=== PATIENT | male | born 1930 | race Caucasian/White ===

== ENCOUNTER 2019-04-18 13:56 | Emergency (ER) | payer MEDICARE, BC ==
[~2019-04-18] VITALS: Ht 172.7 cm; Wt 81.6 kg
--- NOTE | 2019-04-18 14:26 | ED Abdominal Pain ---
General Chief Complaint: Abdominal/GI Problems Stated Complaint: NAUSEA; DIARRHEA Source of Information: Patient, Spouse Exam Limitations: No Limitations History of Present Illness Date Seen by Provider: Apr 18, 2019 Time Seen by Provider: 14:20 Initial Comments The patient is a very pleasant 88-year-old male who presents for evaluation of nausea, diarrhea, and lower right-sided abdominal discomfort which started last night. The patient's is present as well and is providing some of the history. The patient has not vomited. He has had his appendix and gallbladder removed in the past. He denies fevers or chills, rectal bleeding, recent antibiotics, recent hospitalization, increasing over baseline chronic back pain, chest pain or shortness of breath, diaphoresis, dizziness, syncope, or urinary symptoms. He is alert and oriented 4, calm, and appears to be in no distress at this time. He is concerned about dehydration as his appetite has been poor and would like some IV hydration. Timing/Duration: 1 Day Severity/Quality: Moderate Location: RLQ Radiation: No Radiation Activities at Onset: None Modifying Factors: Improves With Eating (makes it worse), Improves With Lying down (makes it better) Associated Symptoms: Nausea/Vomiting (nausea only, no vomiting, +diarrhea) Allergies and Home Medications Allergies Coded Allergies: bacitracin (Verified Allergy, Unknown, 04/18/19) cinnamon (Verified Allergy, Unknown, 04/18/19) gold sodium thiomalate (Verified Allergy, Unknown, 04/18/19) hyaluronate sodium, cross-linked (Verified Allergy, Unknown, 04/18/19) latex (Verified Allergy, Unknown, 04/18/19) propylene glycol (Verified Allergy, Unknown, 04/18/19) rotigotine (Verified Allergy, Unknown, 04/18/19) Uncoded Allergies: GLUTARALDEHYDE (Allergy, Unknown, 04/18/19) IODOPROPNYL BUTYLCARBAMATE (Allergy, Unknown, 04/18/19) CLGDIMMETN-ROKWVXKUX-LPHF PLYS (Allergy, Unknown, 04/18/19) NEOMYCIN SULFATE (Allergy, Unknown, 04/18/19) NICKEL SULFATE (Allergy, Unknown, 04/18/19) SHELLAC (Allergy, Unknown, 04/18/19) TAPE (Allergy, Unknown, 04/18/19) TIXOCORTOL PIVALATE (Allergy, Unknown, 04/18/19) Patient Home Medication List Home Medication List Reviewed: Yes Review of Systems Review of Systems Constitutional: no symptoms reported EENTM: No Symptoms Reported Respiratory: No Symptoms Reported Cardiovascular: No Symptoms Reported Gastrointestinal: Abdominal Pain, Diarrhea, Nausea Genitourinary: No Symptoms Reported Musculoskeletal: no symptoms reported Skin: no symptoms reported Psychiatric/Neurological: No Symptoms Reported Endocrine: No Symptoms Reported Hematologic/Lymphatic: No Symptoms Reported All Other Systems Reviewed Negative Unless Noted: Yes Past Zxlyapu-Ifudvy-Grhaqd Hx Past Med/Social Hx: Reviewed Nursing Past Med/Soc Hx, Reviewed and Corrections made Physical Exam Vital Signs Vital Signs - First Documented 04/18/19 14:04 Temp 97.0 Pulse 85 Resp 20 B/P (MAP) 126/84 (98) Pulse Ox 95 O2 Delivery Room Air Capillary Refill : Height/Weight/BMI Height: '" Weight: lbs. oz. kg; BMI Method: General Appearance: WD/WN, no apparent distress HEENT: PERRL/EOMI, normal ENT inspection, pharynx normal Neck: non-tender, full range of motion, normal inspection Respiratory: chest non-tender, lungs clear, normal breath sounds, no respiratory distress, no accessory muscle use Cardiovascular: regular rate, rhythm, no edema, no gallop, no JVD, no murmur Gastrointestinal: normal bowel sounds, soft, no organomegaly, no pulsatile mass, tenderness (right lower/right lateral abdomen, moderate) Extremities: normal range of motion, non-tender, normal inspection, no pedal edema, no calf tenderness Progress/Results/Core Measures Results/Orders Lab Results Laboratory Tests Test 04/18/19 14:45 04/18/19 15:24 Range/Units White Blood Count 11.2 H 4.3-11.0 10^3/uL Red Blood Count 5.07 4.35-5.85 10^6/uL Hemoglobin 15.7 13.3-17.7 G/DL Hematocrit 49 40-54 % Mean Corpuscular Volume 97 80-99 FL Mean Corpuscular Hemoglobin 31 25-34 PG Mean Corpuscular Hemoglobin Concent 32 32-36 G/DL Red Cell Distribution Width 15.3 H 10.0-14.5 % Platelet Count 369 130-400 10^3/uL Mean Platelet Volume 9.2 7.4-10.4 FL Neutrophils (%) (Auto) 80 H 42-75 % Lymphocytes (%) (Auto) 8 L 12-44 % Monocytes (%) (Auto) 11 0-12 % Eosinophils (%) (Auto) 0 0-10 % Basophils (%) (Auto) 0 0-10 % Neutrophils # (Auto) 9.1 H 1.8-7.8 X 10^3 Lymphocytes # (Auto) 0.9 L 1.0-4.0 X 10^3 Monocytes # (Auto) 1.2 H 0.0-1.0 X 10^3 Eosinophils # (Auto) 0.0 0.0-0.3 10^3/uL Basophils # (Auto) 0.0 0.0-0.1 10^3/uL Neutrophils % (Manual) 79 % Lymphocytes % (Manual) 7 % Monocytes % (Manual) 9 % Eosinophils % (Manual) 1 % Basophils % (Manual) 0 % Band Neutrophils 4 % Sodium Level 138 135-145 MMOL/L Potassium Level 4.4 3.6-5.0 MMOL/L Chloride Level 99 98-107 MMOL/L Carbon Dioxide Level 29 21-32 MMOL/L Anion Gap 10 5-14 MMOL/L Blood Urea Nitrogen 17 7-18 MG/DL Creatinine 1.21 0.60-1.30 MG/DL Estimat Glomerular Filtration Rate 57 BUN/Creatinine Ratio 14 Glucose Level 131 H 70-105 MG/DL Calcium Level 9.6 8.5-10.1 MG/DL Corrected Calcium 9.5 8.5-10.1 MG/DL Total Bilirubin 0.9 0.1-1.0 MG/DL Aspartate Amino Transf (AST/SGOT) 16 5-34 U/L Alanine Aminotransferase (ALT/SGPT) 13 0-55 U/L Alkaline Phosphatase 138 H 40-136 U/L Total Protein 7.1 6.4-8.2 GM/DL Albumin 4.1 3.2-4.5 GM/DL Amylase Level 49 25-125 U/L Lipase 24 8-78 U/L Urine Color DARK YELLOW Urine Clarity SL CLOUDY Urine pH 6.0 5-9 Urine Specific [place] 1.020 1.016-1.022 Urine Protein 2+ H NEGATIVE Urine Glucose (UA) NEGATIVE NEGATIVE Urine Ketones TRACE H NEGATIVE Urine Nitrite NEGATIVE NEGATIVE Urine Bilirubin 2+ H NEGATIVE Urine Urobilinogen 2.0 NORMAL MG/DL Urine Leukocyte Esterase 1+ H NEGATIVE Urine RBC (Auto) NEGATIVE NEGATIVE Urine RBC NONE /HPF Urine WBC 50-100 H /HPF Urine Squamous Epithelial Cells 0-2 /HPF Urine Crystals NONE /LPF Urine Bacteria TRACE /HPF Urine Casts PRESENT /LPF Urine Hyaline Casts 5-10 H /LPF Urine Mucus LARGE H /LPF Urine Culture Indicated YES My Orders Orders - ELMIRA ARGUELLO DO Comprehensive Metabolic Panel (04/18/19 14:15) Lipase (04/18/19 14:15) Amylase (04/18/19 14:15) Ua Culture If Indicated (04/18/19 14:15) Ed Iv/Invasive Line Start (04/18/19 14:15) Cbc With Automated Diff (04/18/19 14:15) Ct Abdomen/Pelvis W (04/18/19 14:15) Iohexol Injection (Omnipaque 350 Mg/Ml 1 (04/18/19 14:45) Received Contrast (Hold Metformin- Contr (04/18/19 14:45) Sodium Chloride Flush (Catheter Flush Sy (04/18/19 14:45) Ns (Ivpb) (Sodium Chloride 0.9% Ivpb Bag (04/18/19 14:45) Ondansetron Injection (Zofran Injectio (04/18/19 15:00) Ns Iv 1000 Ml (Sodium Chloride 0.9%) (04/18/19 15:00) Ketorolac Injection (Toradol Injection) (04/18/19 15:00) Manual Differential (04/18/19 14:45) Ns Iv 1000 Ml (Sodium Chloride 0.9%) (04/18/19 16:00) Urine Culture (04/18/19 15:24) Ceftriaxone For Iv Use (Rocephin For I (04/18/19 16:00) Medications Given in ED Current Medications Medications Dose Ordered Sig/Natasha Route Start Time Stop Time Status Last Admin Dose Admin Ceftriaxone Sodium 1000 mg/ Sterile Water 10 ml @ 200 mls/hr Q24H ONCE IV 04/18/19 16:00 04/18/19 16:02 DC 04/18/19 16:26 200 MLS/HR Iohexol 100 ml ONCE ONCE IV 04/18/19 14:45 04/18/19 14:47 DC 04/18/19 15:51 100 ML Ketorolac Tromethamine 15 mg ONCE ONCE IVP 04/18/19 15:00 04/18/19 15:01 DC 04/18/19 14:58 15 MG Ondansetron HCl 4 mg ONCE ONCE IVP 04/18/19 15:00 04/18/19 15:01 DC 04/18/19 14:57 4 MG Sodium Chloride 10 ml NEEDED PRN IV 04/18/19 14:45 04/18/19 15:51 10 ML Sodium Chloride 100 ml ONCE ONCE IV 04/18/19 14:45 04/18/19 14:47 DC 04/18/19 15:51 100 ML Vital Signs/I&O 04/18/19 14:04 Temp 97.0 Pulse 85 Resp 20 B/P (MAP) 126/84 (98) Pulse Ox 95 O2 Delivery Room Air Progress Progress Note : Progress Note @1655 - Patient was updated on lab and imaging results which suggest enteritis as well as UTI. The patient will go home with antibiotics and nausea medications. He states that he feels much better and has no complaints. He is asking to be discharged at this time. Workup today fails to reveal any emergent pathology. The patient stable for discharge. I did advise close follow-up with the patient's PCP in 2-3 days and return to the emergency Department immediately for new or worsening symptoms. The patient expresses verbal understanding. Diagnostic Imaging Comments [facility] [place], [place] NAME: YASMINE LIU [facility] REC#: [id number] PT STATUS: REG ER : 1930 PHYSICIAN: ELMIRA ARGUELLO DO ADMIT DATE: 04/18/19/ER FS Draft Date of Exam:04/18/19 CT ABDOMEN/PELVIS W PROCEDURE: CT abdomen and pelvis with contrast. TECHNIQUE: Multiple contiguous axial images were obtained through the abdomen and pelvis after administration of intravenous contrast. Auto Exposure Controls were utilized during the CT exam to meet ALARA standards for radiation dose reduction. INDICATION: Right-sided abdominal pain. Diarrhea. COMPARISON: None. FINDINGS: Dense reticular opacities in the visualized lung bases with bronchiectasis. Cholecystectomy. Reported appendectomy. Diffuse gaseous and fluid-filled distention of the small bowel and colon without a discrete transition point. No focal bowel wall thickening. The liver, pancreas, spleen, adrenals, kidneys, and collecting systems are negative. Enlarged prostate. Fat-containing left inguinal hernia. Moderate atherosclerotic calcifications. No lymphadenopathy. No free intraperitoneal air or fluid. Right ANTONINO. Bilateral jonna and pedicle screw fixation and at L2 through L5 with interbody fusions. L3 laminectomy. No acute osseous findings. IMPRESSION: 1. Diffuse fluid and gaseous distention of the small bowel and colon is suggestive of enteritis. No bowel wall thickening. No evidence of bowel obstruction. No pneumatosis. 2. Interstitial consolidation in the lung bases with bronchiectasis appears chronic. An infectious or inflammatory process within the lung bases is not entirely excluded. 3. Additional chronic and incidental findings in the abdomen as above. Dictated on workstation # [id number] Dict: 04/18/19 1627 Trans: 04/18/19 1640 [id number] Interpreted by: MILLIE HENDRICKS MD Electronically signed by: Departure Impression Primary Impression: Enteritis Additional Impression: Acute UTI Disposition: 01 HOME, SELF-CARE Condition: Stable Departure-Patient Inst. Referrals: MICKEY LEO MD (PCP/Family) Primary Care Physician Patient Instructions: Colitis, Dehydration, Adult (DC), Urinary Tract Infection, Adult (DC) Add. Discharge Instructions: To the prescribed medications as instructed. Follow-up with your doctor in the next 2-3 days. Return to the emergency Department immediately for new or worsening symptoms such as rectal bleeding, fevers, or worsening pain. Scripts Ciprofloxacin HCl (Ciprofloxacin HCl) 500 Mg Tablet 500 MG PO BID for 7 Days, #14 TAB Prov: ELMIRA ARGUELLO DO 04/18/19 Metronidazole (Flagyl) 500 Mg Tablet 500 MG PO TID for 7 Days, #21 TAB Prov: ELMIRA ARGUELLO DO 04/18/19 Ondansetron (Ondansetron Odt) 4 Mg Tab.rapdis 4 MG PO Q4H PRN for NAUSEA/VOMITING-1ST LINE, #20 TAB Prov: ELMIRA ARGUELLO DO 04/18/19 ELMIRA ARGUELLO DO Apr 18, 2019 14:26
[2019-04-18] MEDS ORDERED: CATHETER FLUSH 10 ML SYR IV PRN (14:45)
[2019-04-18] MEDS ORDERED: HOLD METFORMIN - RECEIVED CONTRAST 20 ML VIAL IV SCH (14:45)
[2019-04-18] MEDS ORDERED: NS 100 ML (IVPB) BAG IV ONE (14:45)
[2019-04-18] MEDS ORDERED: IOHEXOL 350 MG/ML 100 ML (OMNIPAQUE 350) VIAL IV ONE (14:45)
[2019-04-18] MEDS ORDERED: KETOROLAC 30 MG/ML VIAL IVP ONE (15:00)
[2019-04-18] MEDS ORDERED: ONDANSETRON 4 MG/2 ML (SDV) Z0FRAN IVP ONE (15:00)
[2019-04-18] MEDS ORDERED: NS IV 1000 ML 1,000 ML IV SCH ×2 (15:00→16:00)
[2019-04-18 15:09] LABS: HEMATOCRIT 49 % (40-54); HEMOGLOBIN 15.7 G/DL (13.3-17.7); LYMPHOCYTES % (AUTO) 8 % (12-44); MEAN CORPUSCULAR HEMOGLOBIN 31 PG (25-34); MEAN CORPUSCULAR HGB CONC 32 G/DL (32-36); MEAN CORPUSCULAR VOLUME 97 FL (80-99); MEAN PLATELET VOLUME 9.2 FL (7.4-10.4); NEUTROPHILS % (AUTO) 80 % (42-75); PLATELET COUNT 369 10^3/uL (130-400); RED CELL DISTRIBUTION WIDTH 15.3 % (10.0-14.5); WHITE BLOOD COUNT 11.2 10^3/uL (4.3-11.0)
[2019-04-18 15:10] LABS: BASOPHILS % (AUTO) 0 % (0-10); EOSINOPHILS % (AUTO) 0 % (0-10); LYMPHOCYTES # (AUTO) 0.9 X 10^3 (1.0-4.0); MONOCYTES # (AUTO) 1.2 X 10^3 (0.0-1.0); MONOCYTES % (AUTO) 11 % (0-12); NEUTROPHILS # (AUTO) 9.1 X 10^3 (1.8-7.8)
[2019-04-18 15:16] LABS: ALBUMIN 4.1 GM/DL (3.2-4.5); BILIRUBIN,TOTAL 0.9 MG/DL (0.1-1.0); CALCIUM 9.6 MG/DL (8.5-10.1); CREATININE SERUM 1.21 MG/DL (0.60-1.30); POTASSIUM 4.4 MMOL/L (3.6-5.0); TOTAL PROTEIN 7.1 GM/DL (6.4-8.2)
[2019-04-18 15:31] LABS: BAND NEUTROPHILS 4 %; BASOPHILS % (MANUAL) 0 %; EOSINOPHILS % (MANUAL) 1 %; LYMPHOCYTES % (MANUAL) 7 %; MONOCYTES % (MANUAL) 9 %; NEUTROPHILS % (MANUAL) 79 %
[2019-04-18 15:47] LABS: CLARITY,URINE SL CLOUDY; COLOR,URINE DARK YELLOW; GLUCOSE, URINE (UA) NEGATIVE (NEGATIVE); KETONES,URINE TRACE (NEGATIVE); PROTEIN,URINE 2+ (NEGATIVE)
[2019-04-18 15:48] LABS: BACTERIA,URINE TRACE /HPF; BILIRUBIN,URINE 2+ (NEGATIVE); LEUKOCYTE ESTERASE ,URINE 1+ (NEGATIVE); NITRITE,URINE NEGATIVE (NEGATIVE); SQUAMOUS EPITHELIAL CELL,UR 0-2 /HPF; WBC,URINE 50-100 /HPF
[2019-04-18] MEDS ORDERED: cefTRIAXone FOR IV USE 1,000 MG in WATER (STERILE) FOR INJECTION 10 ML IV ONE (16:00)
--- NOTE | 2019-04-18 16:40 | Diagnostic Imaging Report ---
PROCEDURE: CT abdomen and pelvis with contrast. TECHNIQUE: Multiple contiguous axial images were obtained through the abdomen and pelvis after administration of intravenous contrast. Auto Exposure Controls were utilized during the CT exam to meet ALARA standards for radiation dose reduction. INDICATION: Right-sided abdominal pain. Diarrhea. COMPARISON: None. FINDINGS: Dense reticular opacities in the visualized lung bases with bronchiectasis. Cholecystectomy. Reported appendectomy. Diffuse gaseous and fluid-filled distention of the small bowel and colon without a discrete transition point. No focal bowel wall thickening. The liver, pancreas, spleen, adrenals, kidneys, and collecting systems are negative. Enlarged prostate. Fat-containing left inguinal hernia. Moderate atherosclerotic calcifications. No lymphadenopathy. No free intraperitoneal air or fluid. Right ANTONINO. Bilateral jonna and pedicle screw fixation and at L2 through L5 with interbody fusions. L3 laminectomy. No acute osseous findings. IMPRESSION: 1. Diffuse fluid and gaseous distention of the small bowel and colon is suggestive of enteritis. No bowel wall thickening. No evidence of bowel obstruction. No pneumatosis. 2. Interstitial consolidation in the lung bases with bronchiectasis appears chronic. An infectious or inflammatory process within the lung bases is not entirely excluded. 3. Additional chronic and incidental findings in the abdomen as above. Dictated by: Dictated on workstation # [id number]
[2019-04-18] MEDS ORDERED: METR500T PO (17:02)
[2019-04-18] MEDS ORDERED: CIPR500T4 PO (17:02)
[2019-04-18] MEDS ORDERED: ONDA4TAB11 PO (17:02)
[2019-04-18 17:22] VITALS: BP 127/79
[2019-04-23] MEDS ORDERED: NITR-65 PO (11:00)
== END 2019-04-18 17:22 | disposition home or self-care (01) ==
LOC: EDUNIT# 13:56 → ER FS 13:57
DX: K52.9 Noninfective gastroenteritis and colitis, unspecified (principal); N39.0 Urinary tract infection, site not specified; Z88.1 Allergy status to other antibiotic agents; Z91.040 Latex allergy status; Z88.8 Allergy status to other drugs, medicaments and biological substances; Z91.048 Other nonmedicinal substance allergy status
CPT/HCPCS: 36415; 74177; 80053; 81000; 82150; 83690; 85007; 85027; 87077; 87088; 87186; 96361; 96374; 96375

== ENCOUNTER 2019-06-15 11:02 | Emergency (ER) | payer MEDICARE, BC | END 2019-06-15 12:39 | disposition home or self-care (01) | LOC: ER 11:02 ==

== ENCOUNTER 2019-07-22 06:51 | Emergency (ER) | payer MEDICARE, BC ==
[~2019-07-22] VITALS: Ht 172.7 cm; Wt 77.0 kg
[~2019-07-22 06:51] MED LIST: CIPR500T4 PO; METR500T PO; NITR-65 PO; ONDA4TAB11 PO
--- NOTE | 2019-07-22 07:34 | ED Lower Extremity ---
General Chief Complaint: Lower Extremity Stated Complaint: CANT PUT WEIGHT ON LT SIDE Source: patient, family History of Present Illness Date Seen by Provider: Jul 22, 2019 Time Seen by Provider: 07:04 Initial Comments 88-year-old male complaining of left hip and low back pain. He reports having some pain yesterday morning when he woke up but it got better. Today when he woke up he had severe pain to the point that he could not even stand or bear weight on the left leg. This has improved as he was on his way here to the emergency department. He denies any recent fall or injury. He does have a history of Parkinson's as well as recent compression fracture in his spine that required surgery in May 2019. 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 He has no loss of bowel or bladder control. He has not taking anything for pain this morning but he did take his regular medications. Allergies and Home Medications Allergies Coded Allergies: bacitracin (Verified Allergy, Unknown, 04/18/19) cinnamon (Verified Allergy, Unknown, 04/18/19) gold sodium thiomalate (Verified Allergy, Unknown, 04/18/19) hyaluronate sodium, cross-linked (Verified Allergy, Unknown, 04/18/19) latex (Verified Allergy, Unknown, 04/18/19) propylene glycol (Verified Allergy, Unknown, 04/18/19) rotigotine (Verified Allergy, Unknown, 04/18/19) Uncoded Allergies: GLUTARALDEHYDE (Allergy, Unknown, 04/18/19) IODOPROPNYL BUTYLCARBAMATE (Allergy, Unknown, 04/18/19) NYEZQNAFUT-WRJCNALTK-YTQC PLYS (Allergy, Unknown, 04/18/19) NEOMYCIN SULFATE (Allergy, Unknown, 04/18/19) NICKEL SULFATE (Allergy, Unknown, 04/18/19) SHELLAC (Allergy, Unknown, 04/18/19) TAPE (Allergy, Unknown, 04/18/19) TIXOCORTOL PIVALATE (Allergy, Unknown, 04/18/19) Home Medications Ciprofloxacin HCl 500 Mg Tablet, 500 MG PO BID Prescribed by: ELMIRA ARGUELLO on 04/18/19 170 Metronidazole 500 Mg Tablet, 500 MG PO TID Prescribed by: ELMIRA ARGUELLO on 04/18/191701 Nitrofurantoin Monohyd/M-Cryst 100 Mg Capsule, 1 TAB PO BID, (Reported) Ondansetron 4 Mg Tab.rapdis, 4 MG PO Q4H PRN for NAUSEA/VOMITING-1ST LINE Prescribed by: ELMIRA ARGUELLO on 04/18/191701 Patient Home Medication List Home Medication List Reviewed: Yes Review of Systems Constitutional: No chills, No fever EENTM: no symptoms reported Respiratory: no symptoms reported Cardiovascular: no symptoms reported Gastrointestinal: no symptoms reported Genitourinary: no symptoms reported Musculoskeletal: back pain (low back pain and left hip pain radiating into left leg), joint pain (left hip pain radiating into left leg); No joint swelling Skin: No change in color, No rash Psychiatric/Neurological: Denies Numbness, Denies Paresthesia; Tremors (chronic from parkinsons) Past Uorpmht-Gjcauo-Yjidgb Hx Past Med/Social Hx: Reviewed Nursing Past Med/Soc Hx Patient Social History 2nd Hand Smoke Exposure: No Recent Foreign Travel: No Contact w/Someone Who Travel: No Recent Hopitalizations: No Immunizations Up To Date Tetanus Booster (TDap): Unknown Seasonal Allergies Seasonal Allergies: No Past Medical History Surgeries: Yes Abdominal, Bowel Surgery, Ear Surgery, Gallbladder, Orthopedic, Tonsillectomy Respiratory: Yes Pulmonary Embolism, COPD Cardiac: Yes (chest pain) Hypertension Neurological: Yes Parkinson's Disease Genitourinary: No Gastrointestinal: Yes Gastroesophageal Reflux Musculoskeletal: Yes (BACK SURGERIES; KYPHOPLASTY) Chronic Back Pain, Fractures Endocrine: No HEENT: Yes Cataract Loss of Vision: Bilateral Hearing Impairment: Hard of Hearing, Bilateral Hearing Aide Cancer: Yes Bladder Psychosocial: No Integumentary: No Blood Disorders: No Physical Exam Vital Signs Vital Signs - First Documented 07/22/19 07:03 Temp 36.4 Pulse 65 Resp 18 B/P (MAP) 120/73 Pulse Ox 97 O2 Delivery Room Air Capillary Refill : Height, Weight, BMI Height: 5'8.00" Weight: 174lbs. oz. 78.059174xd; BMI Method:Stated General Appearance: WD/WN, no apparent distress HEENT: pharynx normal Neck: non-tender, supple Cardiovascular: normal peripheral pulses, regular rate, rhythm Respiratory: chest non-tender, lungs clear, normal breath sounds Gastrointestinal: normal bowel sounds, soft, no pulsatile mass Hips: left hip bone tenderness (posterior left hip tenderness with palpation near SI joint), left hip pain, left hip soft tissue tenderness Knees: bilateral knee non-tender, bilateral knee normal inspection, bilateral knee normal range of motion, bilateral knee no evidence of injury Neurologic/Tendon: normal sensation, normal motor functions, normal tendon functions Neurologic/Psychiatric: alert, oriented x 3 Skin: normal color, warm/dry Progress/Results/Core Measures Results/Orders My Orders Orders - JULIET PUENTE MD Ct Lumbar Spine Wo (07/22/19 07:28) Ct Pelvis Wo (07/22/19 07:28) Dexamethasone Injection (Decadron Inject (07/22/19 07:45) Methylprednisolone Acetate Inj (Depo-Med (07/22/19 07:45) Medications Given in ED Current Medications Medications Dose Ordered Sig/Natasha Route Start Time Stop Time Status Last Admin Dose Admin Dexamethasone Sodium Phosphate 4 mg ONCE ONCE IM 07/22/19 07:45 07/22/19 07:46 DC 07/22/19 08:50 4 MG Methylprednisolone Acetate 40 mg ONCE ONCE IM 07/22/19 07:45 07/22/19 07:46 DC 07/22/19 08:50 40 MG Vital Signs/I&O 07/22/19 07:03 Temp 36.4 Pulse 65 Resp 18 B/P (MAP) 120/73 Pulse Ox 97 O2 Delivery Room Air Progress Progress Note #1: Progress Note Try steroid to help with pain and inflammation. Obtain CT scan of lumbar spine and pelvis to look for occult fracture or pinched nerve that might be causing his pain. He has normal range of motion of the left hip and he has no recent fall or injury to indicate a reason for a fracture. Progress Note #2: Progress Note CT scans show an acute L2 compression fracture of the superior endplate. the hardware for the L2-5 posterior fusion is in place and intact. D/w Dr. Sanchez from [facility] and he advised that if his pain is controlled he should have an outpatient MRI and follow up with him in the clinic. He is neurologically intact and does not have loss of bowel or bladder control. When getting him up from the bed he is having much improved pain and is able to walk with a walker without difficulty. Discharge to home with return precautions. Use acetaminophen for pain. The steroids should help with inflammation until he can get followed up. Diagnostic Imaging Diagonstic Imaging: CT Plain Films/CT/US/NM/MRI: pelvis Comments NAME: YASMINE LIU [facility] REC#: [id number] PT STATUS: REG ER : 1930 PHYSICIAN: JULIET PUENTE MD ADMIT DATE: 07/22/19/ER FS Draft Date of Exam:07/22/19 CT PELVIS WO PROCEDURE: CT pelvis without contrast. TECHNIQUE: Multiple contiguous axial images were obtained through the pelvis without the use of intravenous contrast. Sagittal and coronal reformations were performed. Auto Exposure Controls were utilized during the CT exam to meet ALARA standards for radiation dose reduction. INDICATION: Left hip pain. Inability to bear weight. Comparison: CT lumbar spine performed concurrently. CT abdomen and pelvis from 04/18/2019 is also utilized. Findings: Diffuse osseous demineralization is present. No acute fracture within the pelvis or proximal femurs. Right total hip arthroplasty has components in good alignment and there is no surrounding osteolysis. 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 No sizable hip effusion on the left. 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 Partially imaged posterior instrument fusion along the lumbar spine. Please see CT report of the lumbar spine for further assessment. Unchanged fat-containing left inguinal hernia. No free pelvic fluid. Stable surgical changes from TURP. Atherosclerotic aorta is seen. Bilateral distal iliopsoas tendons remain intact. Gluteus medius and minimus tendons are intact as well. Impression: 1. No fracture within the pelvis or left hip. 2. Moderate degenerative arthritis of the left hip. Dictated on workstation # [id number] Dict: 07/22/19902 Trans: 07/22/19912 [facility] [id number] Interpreted by: BIGG ROB MD Electronically signed by: Diagonstic Imaging: CT Plain Films/CT/US/NM/MRI: other (L spine) Comments NAME: YASMINE LIU [facility] REC#: [id number] PT STATUS: REG ER : 1930 PHYSICIAN: JULIET PUENTE MD ADMIT DATE: 07/22/19/ER FS Draft Date of Exam:07/22/19 CT LUMBAR SPINE WO PROCEDURE: CT lumbar spine without contrast. TECHNIQUE: Multiple contiguous axial images were obtained through the lumbar spine without the use of intravenous contrast. Sagittal and coronal reformations were then performed. Auto Exposure Controls were utilized during the CT exam to meet ALARA standards for radiation dose reduction. INDICATION: Back pain with radiation down the left hip and left leg. COMPARISON: CT abdomen and pelvis dated 04/18/2019. FINDINGS: The patient is status post interval kyphoplasty at the L1 level. There is a small amount of methylmethacrylate within the anterior epidural space at the L1 level. There is also a moderate amount of cement within the L1-L2 intervertebral disc space. There is, however, no significant spinal canal stenosis. The patient is also status post previous L3 laminectomy with posterior fusion of L2 through L5. Bilateral interpedicular screws and posterior fusion rods appear well-seated. There is no evidence of loosening. The hardware is intact. Note is made, however, of deformity involving the superior endplate of the L2 vertebral body. There is an acute fracture line which predominantly parallels the superior endplate but does appear to extend into the anterior margins of the superior endplate as well as the superior margins of the anterior vertebral body at L2. There is no convincing evidence of involvement of the posterior vertebral body wall at L2. The posterior elements appear to be intact. The L3 through L5 vertebral body heights are maintained. Evaluation of the static alignment shows mild grade 1 anterolisthesis at L3-L4 and L4-L5. There is no evidence of jumped facets. The intervertebral disc spaces are also noted at L2-L3 through L4-L5 and appear appropriately positioned. There are moderate multilevel degenerative changes consisting of intervertebral disc height loss with anterior and posterior disc/osteophyte complex formations and multilevel facet arthropathy. Evaluation of the spinal canal contents is suboptimal secondary to CT modality and lack of intrathecal contrast. There is probable mild spinal canal narrowing at the L4-5 level. The pre and paravertebral soft tissue structures are unremarkable. There is moderate calcified aortic and arterial atherosclerosis. IMPRESSION: 1. Acute fracture involving the superior endplate of L2. The patient may be a candidate for kyphoplasty. 2. Status post L1 kyphoplasty as above. 3. Post surgical changes as described above. No evidence of hardware fracture or failure. Dictated on workstation # [id number] Dict: 07/22/19 0858 Trans: 07/22/19 0910 [id number] Interpreted by: KM COPELAND MD Electronically signed by: Departure Impression Primary Impression: Closed compression fracture of second lumbar vertebra Qualified Codes: S32.020A - Wedge compression fracture of second lumbar vertebra, initial encounter for closed fracture Disposition: 01 HOME, SELF-CARE Condition: Stable Departure-Patient Inst. Decision time for Depature: 10:08 Referrals: ROMEL SANCHEZ MAXWELL MD (PCP/Family) Primary Care Physician Patient Instructions: Vertebral Compression Fracture (DC) Add. Discharge Instructions: Use a walker or assistive device to help stabilize your walking while having the more severe pain in your back and left hip/leg. Use Acetaminophen (Tylenol) 650 mg every 6 hours as needed for pain. Check with Dr. Sanchez at [address] for follow up and he wanted to arrange for an outpatient MRI to evaluate your compression fracture of the 2nd Lumbar vertebra. Call and set up an appointment and they can help arrange for the MRI as well. All discharge instructions reviewed with patient and/or family. Voiced understanding. JULIET PUENTE MD Jul 22, 2019 07:34
[2019-07-22] MEDS ORDERED: DEXAMETHASONE 4 MG/ML SDV (DECADRON) IM ONE (07:45)
[2019-07-22] MEDS ORDERED: methylPREDNISolone 40 MG/ML (DEPO MEDROL) VIAL IM ONE (07:45)
--- NOTE | 2019-07-22 09:10 | Diagnostic Imaging Report ---
PROCEDURE: CT lumbar spine without contrast. TECHNIQUE: Multiple contiguous axial images were obtained through the lumbar spine without the use of intravenous contrast. Sagittal and coronal reformations were then performed. Auto Exposure Controls were utilized during the CT exam to meet ALARA standards for radiation dose reduction. INDICATION: Back pain with radiation down the left hip and left leg. COMPARISON: CT abdomen and pelvis dated 04/18/2019. FINDINGS: The patient is status post interval kyphoplasty at the L1 level. There is a small amount of methylmethacrylate within the anterior epidural space at the L1 level. There is also a moderate amount of cement within the L1-L2 intervertebral disc space. There is, however, no significant spinal canal stenosis. The patient is also status post previous L3 laminectomy with posterior fusion of L2 through L5. Bilateral interpedicular screws and posterior fusion rods appear well-seated. There is no evidence of loosening. The hardware is intact. Note is made, however, of deformity involving the superior endplate of the L2 vertebral body. There is an acute fracture line which predominantly parallels the superior endplate but does appear to extend into the anterior margins of the superior endplate as well as the superior margins of the anterior vertebral body at L2. There is no convincing evidence of involvement of the posterior vertebral body wall at L2. The posterior elements appear to be intact. The L3 through L5 vertebral body heights are maintained. Evaluation of the static alignment shows mild grade 1 anterolisthesis at L3-L4 and L4-L5. There is no evidence of jumped facets. The intervertebral disc spaces are also noted at L2-L3 through L4-L5 and appear appropriately positioned. There are moderate multilevel degenerative changes consisting of intervertebral disc height loss with anterior and posterior disc/osteophyte complex formations and multilevel facet arthropathy. Evaluation of the spinal canal contents is suboptimal secondary to CT modality and lack of intrathecal contrast. There is probable mild spinal canal narrowing at the L4-5 level. The pre and paravertebral soft tissue structures are unremarkable. There is moderate calcified aortic and arterial atherosclerosis. IMPRESSION: 1. Acute fracture involving the superior endplate of L2. The patient may be a candidate for kyphoplasty. 2. Status post L1 kyphoplasty as above. 3. Post surgical changes as described above. No evidence of hardware fracture or failure. Dictated by: Dictated on workstation # [id number]
--- NOTE | 2019-07-22 09:14 | Diagnostic Imaging Report ---
PROCEDURE: CT pelvis without contrast. TECHNIQUE: Multiple contiguous axial images were obtained through the pelvis without the use of intravenous contrast. Sagittal and coronal reformations were performed. Auto Exposure Controls were utilized during the CT exam to meet ALARA standards for radiation dose reduction. INDICATION: Left hip pain. Inability to bear weight. Comparison: CT lumbar spine performed concurrently. CT abdomen and pelvis from 04/18/2019 is also utilized. Findings: Diffuse osseous demineralization is present. No acute fracture within the pelvis or proximal femurs. Right total hip arthroplasty has components in good alignment and there is no surrounding osteolysis. 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 No sizable hip effusion on the left. 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 Partially imaged posterior instrument fusion along the lumbar spine. Please see CT report of the lumbar spine for further assessment. Unchanged fat-containing left inguinal hernia. No free pelvic fluid. Stable surgical changes from TURP. Atherosclerotic aorta is seen. Bilateral distal iliopsoas tendons remain intact. Gluteus medius and minimus tendons are intact as well. Impression: 1. No fracture within the pelvis or left hip. 2. Moderate degenerative arthritis of the left hip. Dictated by: Dictated on workstation # [id number]
[2019-07-22 10:25] VITALS: BP 120/73
== END 2019-07-22 10:17 | disposition home or self-care (01) ==
LOC: EDUNIT# 06:51 → ER FS 06:53
DX: S32.020A Wedge compression fracture of second lumbar vertebra, initial encounter for closed fracture (principal); I10 Essential (primary) hypertension; J44.9 Chronic obstructive pulmonary disease, unspecified; K21.9 Gastro-esophageal reflux disease without esophagitis; H54.7 Unspecified visual loss; G20 Parkinson's disease; Z85.51 Personal history of malignant neoplasm of bladder; Z86.711 Personal history of pulmonary embolism; Z88.1 Allergy status to other antibiotic agents; Z88.8 Allergy status to other drugs, medicaments and biological substances; Z91.040 Latex allergy status; Z90.89 Acquired absence of other organs; X58.XXXA Exposure to other specified factors, initial encounter
CPT/HCPCS: 72131; 72192